=== PATIENT | female | born 1995 | race Caucasian/White ===

== ENCOUNTER 2017-08-25 10:10 | Emergency (ER) | END 2017-08-25 12:16 | disposition home or self-care (01) ==

== ENCOUNTER 2017-11-30 11:23 | Emergency (ER) | END 2017-11-30 14:04 | disposition home or self-care (01) ==

== ENCOUNTER 2017-12-25 16:47 | Emergency (ER) | END 2017-12-25 17:44 | disposition home or self-care (01) ==